=== PATIENT | male | born 1935 | race American Indian/Alaskan Native ===

== ENCOUNTER 2018-05-09 00:04 | Inpatient (IN) | payer OTHER ==
[~2018-05-09] VITALS: Ht 177.8 cm; Wt 150.0 kg
[2018-05-09] MEDS ORDERED: acetaminophen 325mg tablet PO ONE (00:25)
[2018-05-09] MEDS ORDERED: normal saline 1000ml 1,000 ML IV ONE (00:25)
[2018-05-09 00:42] LABS: BASOPHILS % (AUTO) 0.1 % (0-1); EOSINOPHILS % (AUTO) 0.6 % (0-6); HEMATOCRIT 41.5 % (42.0-52.0); HEMOGLOBIN 13.6 g/dl (14.0-17.9); LYMPHOCYTES # (AUTO) 0.1 X10'3 (1.1-4.8); LYMPHOCYTES % (AUTO) 0.8 % (21-51); MEAN CORPUSCULAR HEMOGLOBIN 29.1 PG (27.0-31.0); MEAN CORPUSCULAR HGB CONC 32.9 % (33.0-36.5); MEAN CORPUSCULAR VOLUME 88.6 FL (78-98); MONOCYTES % (AUTO) 0.6 % (2-12); NEUTROPHILS % (AUTO) 97.9 % (42-75); RED BLOOD COUNT 4.69 X10'6 (4.70-6.10); RED CELL DISTRIBUTION WIDTH 13.3 % (11.5-14.5); WHITE BLOOD COUNT 8.1 X10'3 (4.5-11.0)
[2018-05-09 00:49] LABS: ALANINE AMINOTRANSFERASE 46 U/L (12-78); ALBUMIN 3.6 G/DL (3.4-5.0); ALBUMIN/GLOBULIN RATIO 1.3 (1.1-1.5); ALKALINE PHOSPHATASE 57 IU/L (46-116); ANION GAP 10 (8-16); BILIRUBIN,TOTAL 0.4 MG/DL (0.1-1.0); BLOOD UREA NITROGEN 48 MG/DL (7-18); CALCIUM 8.4 MG/DL (8.5-10.1); CHLORIDE 107 MMOL/L (99-107); CREATININE 2.67 MG/DL (0.60-1.10); GLUCOSE 132 MG/DL (70-104); POTASSIUM 5.2 MMOL/L (3.5-5.1); SODIUM 140 MMOL/L (135-145); TOTAL CARBON DIOXIDE 22.8 MMOL/L (24-32); TOTAL PROTEIN 6.4 G/DL (6.4-8.2); eGFR 23 ML/MIN
[2018-05-09 01:02] LABS: ASPARTATE AMINO TRANSFERASE 27 U/L (10-37)
[2018-05-09 01:06] LABS: PLATELET COUNT 106 X10'3 (140-440)
[2018-05-09] MEDS ORDERED: GABA-532 PO (01:38)
[2018-05-09] MEDS ORDERED: LANTUS SQ (01:38)
[2018-05-09] MEDS ORDERED: FENO145T38 PO (01:38)
[2018-05-09] MEDS ORDERED: LISI40TA4 PO (01:38)
[2018-05-09] MEDS ORDERED: ASPI-1265 PO (01:38)
[2018-05-09] MEDS ORDERED: FURO-150 PO (01:38)
[2018-05-09] MEDS ORDERED: FLO0.4C PO (01:38)
[2018-05-09] MEDS ORDERED: ROSU10TA PO (01:38)
[2018-05-09] MEDS ORDERED: morphine 4 MG/ML inj SYRINge IV PRN ×2 (01:50)
[2018-05-09] MEDS ORDERED: mag hydrox/Alum hydrox/simeth 30ml oral suspension PO PRN (01:50)
[2018-05-09] MEDS ORDERED: ondansetron/PF 4mg/2ml inj IV PRN (01:50)
[2018-05-09] MEDS ORDERED: metoclopramide 5 mg/ml inj IV PRN (01:50)
[2018-05-09] MEDS ORDERED: magnesium hydroxide 30ml (MOM) UD suspension PO PRN (01:50)
[2018-05-09] MEDS ORDERED: diphenhydrAMINE 25mg capsule PO PRN (01:50)
[2018-05-09] MEDS ORDERED: HYDROmorphone 1 mg/ml syringe IV PRN ×2 (01:50)
[2018-05-09] MEDS ORDERED: diphenhydrAMINE 50 mg/ml inj IV PRN (01:50)
[2018-05-09] MEDS ORDERED: acetaminophen 325mg tablet PO PRN ×2 (01:50)
[2018-05-09] MEDS ORDERED: acetaminophen 650mg rectal suppository RC PRN (01:50)
[2018-05-09] MEDS ORDERED: bisacodyl 10mg suppository rectal RC PRN (01:50)
[2018-05-09] MEDS ORDERED: HYDROcodone/acetaminophen 5mg/325mg tablet PO PRN (01:50)
[2018-05-09] MEDS ORDERED: dextrose 50%-water 50ml dispensing syringe IV PRN ×2 (01:55)
[2018-05-09] MEDS ORDERED: dextrose ORAL solution 15 GM/59 ML bottle PO PRN ×2 (01:55)
[2018-05-09] MEDS ORDERED: MESSAGE TO PHARMACY PO ONE (01:55)
[2018-05-09] MEDS ORDERED: glucagon, human recombinant 1mg kit SUBCUT PRN (01:55)
[2018-05-09] MEDS ORDERED: insulin Lispro (HumaLOG) vial - multi-dose SQ SCH (01:55)
[2018-05-09] MEDS ORDERED: CefTRIAXone/D5W-Rocephin 1gm 50 ML IV SCH ×2 (02:02→20:00)
[2018-05-09 02:12] LABS: HEMOGLOBIN A1C 6.9 % (4.5-6.2)
[2018-05-09 02:20] LABS: MAGNESIUM 1.8 MG/DL (1.5-2.4); PHOSPHORUS 2.7 MG/DL (2.3-4.5)
[2018-05-09 02:50] VITALS: BP 125/48
[2018-05-09] MEDS: normal saline 1000ml 1,000 ML IV SCH ×4 (03:58→21:53)
[2018-05-09] MEDS: HYDROcodone/acetaminophen 10/325mg tab PO PRN ×3 (04:00→19:34)
[2018-05-09 07:00] VITALS: BP 109/47
[2018-05-09] MEDS: pantoprazole 40mg Tablet.DR PO SCH (07:19)
[2018-05-09] MEDS ORDERED: heparin, porcine 5000 units/ml vial SQ SCH (08:00)
[2018-05-09 11:46] VITALS: BP 116/52
[2018-05-09 14:30] LABS: CLARITY,URINE SLIGHTLY CLOUDY (Clear); COLOR,URINE YELLOW (Yellow); GLUCOSE, URINE NEGATIVE (Neg); KETONES,URINE NEGATIVE (Neg); LEUKOCYTE ESTERASE ,URINE SMALL (Neg); NITRITES, URINE NEGATIVE (Neg); OCCULT BLOOD,URINE MODERATE (Neg); PH,URINE 5.5 (4.8-8.0); PROTEIN,URINE NEGATIVE (Neg); UROBILINOGEN,URINE 0.2 E.U/dL (0.2-1.0)
[2018-05-09 14:38] LABS: UA COLLECTION TYPE CLN CATCH MIDSTREAM
[2018-05-09 14:39] LABS: BACTERIA,URINE 1+ /HPF (Neg); MUCUS STRANDS FEW /LPF (Neg); SQUAMOUS EPITHELIAL CELL,UR FEW /LPF (FEW); WBC,URINE 50-100 /HPF (0-4)
[2018-05-09 14:40] LABS: TRANSITIONAL EPI CELLS,URINE FEW /HPF
[2018-05-09 19:00] VITALS: BP 118/56
[2018-05-09] MEDS: lactobacillus rhamnosus 10,000 MMU CELLS/CAPSULE PO SCH (19:33)
[2018-05-09] MEDS ORDERED: non-formulary drug (Rosuvastatin Calcium* (Crestor*) 1 TAB) PO SCH (21:00)
[2018-05-09] MEDS ORDERED: temazepam 15mg capsule PO PRN (21:00)
[2018-05-09] MEDS ORDERED: insulin glargine (Lantus) pen - multi-dose SQ SCH (21:00)
[2018-05-09] MEDS: tamsulosin 0.4mg capsule PO SCH (21:52)
[2018-05-09] MEDS: gabapentin 300mg capsule PO SCH (21:52)
[2018-05-10] VITALS: BP 108/62
[2018-05-10 05:39] LABS: BASOPHILS # (AUTO) 0.1 X10'3 (0-0.2); BASOPHILS % (AUTO) 0.6 % (0-1); EOSINOPHILS # (AUTO) 0.4 X10'3 (0-0.9); EOSINOPHILS % (AUTO) 3.8 % (0-6); HEMATOCRIT 35.8 % (42.0-52.0); HEMOGLOBIN 11.9 g/dl (14.0-17.9); LYMPHOCYTES # (AUTO) 0.5 X10'3 (1.1-4.8); LYMPHOCYTES % (AUTO) 4.7 % (21-51); MEAN CORPUSCULAR HEMOGLOBIN 29.4 PG (27.0-31.0); MEAN CORPUSCULAR HGB CONC 33.4 % (33.0-36.5); MEAN PLATELET VOLUME 10.2 FL (7.4-10.4); MONOCYTES # (AUTO) 0.8 X10'3 (0-0.9); MONOCYTES % (AUTO) 8.1 % (2-12); NEUTROPHILS # (AUTO) 7.9 X10'3 (1.8-7.7); NEUTROPHILS % (AUTO) 82.8 % (42-75); PLATELET COUNT 82 X10'3 (140-440); RED BLOOD COUNT 4.07 X10'6 (4.70-6.10); RED CELL DISTRIBUTION WIDTH 14.7 % (11.5-14.5); WHITE BLOOD COUNT 9.6 X10'3 (4.5-11.0)
[2018-05-10 06:10] LABS: ALANINE AMINOTRANSFERASE 31 U/L (12-78); ALBUMIN 2.9 G/DL (3.4-5.0); ALBUMIN/GLOBULIN RATIO 1.1 (1.1-1.5); ALKALINE PHOSPHATASE 32 IU/L (46-116); ANION GAP 8 (8-16); ASPARTATE AMINO TRANSFERASE 18 U/L (10-37); BILIRUBIN,TOTAL 0.3 MG/DL (0.1-1.0); BLOOD UREA NITROGEN 36 MG/DL (7-18); BUN/CREATININE RATIO 17.7 (5.4-32.0); CHLORIDE 110 MMOL/L (99-107); CHOLESTEROL 139 MG/DL (0-200); CREATININE 2.03 MG/DL (0.60-1.10); GLUCOSE 114 MG/DL (70-104); HDL CHOLESTEROL 23 MG/DL (35-60); LDL CHOLESTEROL 82 MG/DL (50-100); POTASSIUM 4.8 MMOL/L (3.5-5.1); SODIUM 143 MMOL/L (135-145); TOTAL CARBON DIOXIDE 25.3 MMOL/L (24-32); TOTAL PROTEIN 5.6 G/DL (6.4-8.2); TRIGLYCERIDES 220 MG/DL (20-135); eGFR 32 ML/MIN
[2018-05-10 07:15] VITALS: BP 114/54
[2018-05-10] MEDS ORDERED: fenofibrate 145mg tablet PO SCH ×2 (08:00→08:38)
[2018-05-10] MEDS: pantoprazole 40mg Tablet.DR PO SCH (08:59)
[2018-05-10] MEDS: CefTRIAXone/D5W-Rocephin 1gm 50 ML IV SCH (09:00)
[2018-05-10] MEDS: lactobacillus rhamnosus 10,000 MMU CELLS/CAPSULE PO SCH ×2 (09:01→20:20)
[2018-05-10] MEDS: aspirin 81mg tab.chew PO SCH (09:01)
[2018-05-10] MEDS: insulin glargine (Lantus) pen - multi-dose SQ SCH (09:10)
[2018-05-10] MEDS: normal saline 1000ml 1,000 ML IV SCH ×2 (09:11→20:19)
[2018-05-10 11:48] VITALS: BP 154/75
[2018-05-10 18:00] VITALS: BP 168/84
[2018-05-10] MEDS: tamsulosin 0.4mg capsule PO SCH (20:19)
[2018-05-10] MEDS: gabapentin 300mg capsule PO SCH (20:20)
[2018-05-10] MEDS ORDERED: atorvastatin 20mg tablet PO SCH (21:00)
[2018-05-10 21:30] VITALS: BP 158/84
[2018-05-11] VITALS: BP 153/65
[2018-05-11] MEDS: normal saline 1000ml 1,000 ML IV SCH (05:09)
[2018-05-11 05:19] LABS: BASOPHILS % (AUTO) 0.2 % (0-1); EOSINOPHILS # (AUTO) 0.1 X10'3 (0-0.9); EOSINOPHILS % (AUTO) 1.5 % (0-6); HEMATOCRIT 36.1 % (42.0-52.0); HEMOGLOBIN 12.3 g/dl (14.0-17.9); LYMPHOCYTES # (AUTO) 0.5 X10'3 (1.1-4.8); LYMPHOCYTES % (AUTO) 6.2 % (21-51); MEAN CORPUSCULAR HEMOGLOBIN 29.4 PG (27.0-31.0); MEAN CORPUSCULAR HGB CONC 34.2 % (33.0-36.5); MEAN CORPUSCULAR VOLUME 85.8 FL (78-98); MEAN PLATELET VOLUME 10.7 FL (7.4-10.4); MONOCYTES # (AUTO) 0.8 X10'3 (0-0.9); MONOCYTES % (AUTO) 9.9 % (2-12); NEUTROPHILS # (AUTO) 6.6 X10'3 (1.8-7.7); NEUTROPHILS % (AUTO) 82.2 % (42-75); PLATELET COUNT 82 X10'3 (140-440); RED CELL DISTRIBUTION WIDTH 13.8 % (11.5-14.5); WHITE BLOOD COUNT 8.1 X10'3 (4.5-11.0)
[2018-05-11 06:05] LABS: ALANINE AMINOTRANSFERASE 38 U/L (12-78); ALBUMIN 3.1 G/DL (3.4-5.0); ALKALINE PHOSPHATASE 41 IU/L (46-116); ANION GAP 9 (8-16); ASPARTATE AMINO TRANSFERASE 25 U/L (10-37); BILIRUBIN,TOTAL 0.4 MG/DL (0.1-1.0); BLOOD UREA NITROGEN 25 MG/DL (7-18); BUN/CREATININE RATIO 14.3 (5.4-32.0); CALCIUM 8.2 MG/DL (8.5-10.1); CHLORIDE 106 MMOL/L (99-107); CREATININE 1.75 MG/DL (0.60-1.10); GLUCOSE 125 MG/DL (70-104); POTASSIUM 4.5 MMOL/L (3.5-5.1); SODIUM 140 MMOL/L (135-145); TOTAL CARBON DIOXIDE 24.8 MMOL/L (24-32); TOTAL PROTEIN 6.1 G/DL (6.4-8.2); eGFR 38 ML/MIN
[2018-05-11 07:16] VITALS: BP 136/70
[2018-05-11 07:25] LABS: LARGE PLATELETS FEW; PLATELET ESTIMATE DECREASED
[2018-05-11] MEDS: aspirin 81mg tab.chew PO SCH (08:20)
[2018-05-11] MEDS: pantoprazole 40mg Tablet.DR PO SCH (08:20)
[2018-05-11] MEDS: lactobacillus rhamnosus 10,000 MMU CELLS/CAPSULE PO SCH (08:20)
[2018-05-11] MEDS: insulin glargine (Lantus) pen - multi-dose SQ SCH (08:26)
[2018-05-11] MEDS: CefTRIAXone/D5W-Rocephin 1gm 50 ML IV SCH (08:55)
[2018-05-11] MEDS ORDERED: LEVO500T2 PO (10:31)
== END 2018-05-11 11:55 | disposition home or self-care (01) | DRG 871 ==
LOC: ER 00:06 → ED HOLD 01:49 → SUR 3N 02:45 → CMPBEDREQ 04:04
PROVIDERS: ADMIT Family Medicine; ATTEND Family Medicine
DX: A41.9 Sepsis, unspecified organism (principal); N17.0 Acute kidney failure with tubular necrosis; N39.0 Urinary tract infection, site not specified; Z68.42 Body mass index [BMI] 45.0-49.9, adult; I13.0 Hypertensive heart and chronic kidney disease with heart failure and stage 1 through stage 4 chronic kidney disease, or unspecified chronic kidney disease; I50.30 Unspecified diastolic (congestive) heart failure; E66.01 Morbid (severe) obesity due to excess calories; R65.20 Severe sepsis without septic shock; B96.20 Unspecified Escherichia coli [E. coli] as the cause of diseases classified elsewhere; D64.9 Anemia, unspecified; D69.6 Thrombocytopenia, unspecified; E11.22 Type 2 diabetes mellitus with diabetic chronic kidney disease; E11.65 Type 2 diabetes mellitus with hyperglycemia; E87.5 Hyperkalemia; N18.9 Chronic kidney disease, unspecified; G89.29 Other chronic pain; M54.9 Dorsalgia, unspecified; R79.89 Other specified abnormal findings of blood chemistry; Z79.899 Other long term (current) drug therapy; Z79.01 Long term (current) use of anticoagulants; Z79.82 Long term (current) use of aspirin; Z79.4 Long term (current) use of insulin; Z85.46 Personal history of malignant neoplasm of prostate
CPT/HCPCS: 36415; 71045; 76775; 80053; 80061; 81001; 82948; 83036; 83605; 83735; 83880; 84100; 85025; 87040; 87070; 87077; 87088; 87186; 93005; 93306; 97116; 97161; 99291; A6212; J0696; J1170; J1815; J7030